=== PATIENT | female | born 1970 | race American Indian/Alaskan Native ===

== ENCOUNTER 2016-08-23 20:23 | Emergency (ER) | payer OTHER, BC ==
[2016-08-24] MEDS ORDERED: ULTRAM PO ONE (05:26)
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
[2016-08-24 05:57] VITALS: BP 161/100
== END 2016-08-24 06:11 | disposition home or self-care (01) ==
LOC: ED 20:23
DX: M54.2 Cervicalgia (principal); V89.2XXA Person injured in unspecified motor-vehicle accident, traffic, initial encounter; Y93.89 Activity, other specified; Y92.89 Other specified places as the place of occurrence of the external cause; Y99.8 Other external cause status
CPT/HCPCS: 99282